=== PATIENT | female | born 2000 | race Caucasian/White ===

== ENCOUNTER 2021-04-01 08:48 | Inpatient (IN) ==
[2021-04-01] MEDS ORDERED: LACTATED RINGER'S 1,000 ML IV PRN (10:37)
[2021-04-01] MEDS ORDERED: miSOPROStoL 50 MCG TAB PO ONE ×2 (10:37→16:37)
[2021-04-01] MEDS ORDERED: OXYTOCIN 30 UNITS/500 ML BAG IV PRN (10:37)
[2021-04-01 11:26] LABS: Hematocrit (blood only) 34.9 % (37-47); Hemoglobin 11.4 g/dL (12.0-16.0); Mean Corpuscular Hemoglobin 29.8 pg (25-34); Mean Corpuscular Hgb Conc 32.7 g/dL (32-36); Mean Corpuscular Volume 91.4 fL (80-100); Mean Platelet Volume 10.1 fL (7.4-10.4); Platelet Count 211 K/uL (130-400); RDW Coefficient of Variation 16.3 % (11.5-14.5); RDW Standard Deviation 54.5 fL (36.4-46.3); Red Blood Count 3.82 M/uL (4.2-5.4); White Blood Count 14.52 K/uL (4.8-10.8)
[2021-04-01 13:37] LABS: Amphetamines+Metham, Urine Neg (Neg); Barbiturates, Urine Neg (Neg); Benzodiazepine, Urine Neg (Neg); Cocaine, Urine Neg (Neg); MDMA (Ecstacy), Urine Neg (Neg); Methadone, Urine Neg (Neg); Opiate, Urine Neg (Neg); Phencyclidine, Urine Neg (Neg)
[2021-04-01] MEDS: CALCIUM CARBONATE 500 MG CHEWABLE TAB PO PRN (18:03)
[2021-04-01] MEDS: ONDANSETRON INJ 2 MG/ML 2 ML VIAL IV PRN (20:27)
[2021-04-01] MEDS ORDERED: DINOPROSTONE 10 MG INSERT PV ONE (22:19)
--- NOTE | 2021-04-02 00:07 | Labor Progress Brief Note ---
Date of Service April 02, 2021 Assessment & Plan (1) COVID-19 affecting in third trimester: Plan: Induction for post dates + COVID FHR CAT1 CTx Minimal VE ft/50/-3 Cervidil placed Admission and Anticipated Discharge Date Admission Date: April 01, 2021 Results & Data ([facility]) Vital Signs (Past 12 Hours) Vital Signs Temp Pulse Resp BP 04/01/21 22:25 55 L 116/56 L 04/01/21 19:09 36.8 C 74 18 128/56 L 04/01/21 16:07 75 112/58 L 04/01/21 16:06 36.9 C 20 04/01/21 12:25 36.8 C 68 20 110/56 L
--- NOTE | 2021-04-02 12:10 | Labor Progress Brief Note ---
Date of Service April 02, 2021 Assessment & Plan Admission and Anticipated Discharge Date Admission Date: April 01, 2021 Physical Exam Genitourinary: no vaginal lesions, no adnexal mass normal external appearance Manual OB Exam: + cervical dilation (closed), + cervical effacement (25%) and + station high OB Exam Monitor Tracing: + external FHT monitor used, + external uterine monitor used, + category I and + normal FHT variability Cervidil removed from vagina Will continue with Cytotec 50 mcg orally every 4 hours for cervical ripening Results & Data ([facility]) Vital Signs (Past 12 Hours) Vital Signs Temp Pulse Resp BP 04/02/21 07:21 68 104/56 L 04/02/21 07:15 36.8 C 18 04/02/21 04:03 36.7 C 68 16 97/52 L
[2021-04-02] MEDS: miSOPROStoL 50 MCG TAB PO SCH ×2 (18:57→20:14)
--- NOTE | 2021-04-03 01:03 | Labor Progress Brief Note ---
Date of Service April 03, 2021 Assessment & Plan Admission and Anticipated Discharge Date Admission Date: April 01, 2021 Physical Exam Genitourinary: Manual OB Exam: + cervical dilation OB Exam Monitor Tracing: + external FHT monitor used, + external uterine monitor used, + category I and + normal FHT variability cervix closed/50/-3/posterior and firm Sharma inserted into cervix by digital exam with 40 ml saline Results & Data ([facility]) Vital Signs (Past 12 Hours) Vital Signs Temp Pulse Resp BP 04/03/21 00:53 51 L 96/56 L 04/02/21 22:37 36.7 C 72 16 116/57 L 04/02/21 19:07 36.7 C 87 18 116/73 04/02/21 16:24 36.8 C 18 04/02/21 16:23 68 108/64 04/02/21 13:26 36.8 C 64 16 108/61
[2021-04-03] MEDS ORDERED: OXYTOCIN 30 UNITS/500 ML BAG IV PRN (08:21)
[2021-04-03] MEDS: LACTATED RINGER'S 1,000 ML IV SCH ×4 (11:12→22:08)
[2021-04-03] MEDS ORDERED: Nursing to Pharmacy Communication SCH (11:15)
--- NOTE | 2021-04-03 12:13 | Labor Progress Brief Note ---
Date of Service April 03, 2021 Assessment & Plan Admission and Anticipated Discharge Date Admission Date: April 01, 2021 Physical Exam Genitourinary: Manual OB Exam: + cervical dilation 1 cm and 2 cm, + cervical effacement 70% and + station -2 OB Exam Monitor Tracing: + external FHT monitor used, + external uterine monitor used, + category I and + normal FHT variability Sharma fell out at 1105 Pitocin ongoing Results & Data ([facility]) Vital Signs (Past 12 Hours) Vital Signs Temp Pulse Resp BP 04/03/21 10:54 81 120/59 L 04/03/21 07:34 73 124/57 L 04/03/21 07:30 36.9 C 20 04/03/21 04:06 36.7 C 71 18 103/49 L 04/03/21 00:58 36.8 C 18 04/03/21 00:53 51 L 96/56 L
[2021-04-03] MEDS: CALCIUM CARBONATE 500 MG CHEWABLE TAB PO PRN ×3 (12:26→23:45)
--- NOTE | 2021-04-03 16:41 | Labor Progress Brief Note ---
Date of Service April 03, 2021 Assessment & Plan Admission and Anticipated Discharge Date Admission Date: April 01, 2021 Physical Exam Genitourinary: Manual OB Exam: + cervical dilation 1 cm and 2 cm, + cervical effacement 80%, + station -2 and + amniotic fluid clear OB Exam Monitor Tracing: + external FHT monitor used, + external uterine monitor used, + category I and + normal FHT variability AROM with Amni-hook clear fluid Results & Data ([facility]) Vital Signs (Past 12 Hours) Vital Signs Temp Pulse Resp BP 04/03/21 16:02 36.8 C 18 04/03/21 16:00 60 101/52 L 04/03/21 15:16 18 04/03/21 14:15 70 126/70 04/03/21 13:23 71 122/64 04/03/21 12:23 37.0 C 59 L 20 106/57 L 04/03/21 10:54 81 120/59 L 04/03/21 07:34 73 124/57 L 04/03/21 07:30 36.9 C 20
--- NOTE | 2021-04-03 16:46 | Anesthesiology Consultation ---
Date of Service April 03, 2021 Assessment & Plan (1) Encounter for pre-operative examination: Chart Review Chart Review: Patient NOT seen in Pre Admission Testing and Acceptable Risk for Labor Epidural Consults Requested none History Height/Weight Height: 5 ft 2 in Weight: 75.75 kg Allergies Allergy/AdvReac Type Severity Reaction Status Date / Time amoxicillin Allergy Intermediate hives Verified 04/01/21 10:45 clavulanic acid Allergy Intermediate hives Verified 04/01/21 10:45 Medications Home Medications Medication Instructions Recorded Confirmed Last Taken [id number] 1 mg 1 tab PO DAILY 02/26/21 04/01/21 Unknown tablet Active Medications Generic Name Dose Route Start Last Admin Trade Name Freq PRN Reason Stop Dose Admin Butorphanol Tartrate 1 mg 04/03/21 16:39 04/03/21 18:59 Butorphanol Tartrate 1 Mg/Ml Vial IV 05/03/21 16:38 1 mg Q2H PRN Administration Pain Calcium Carbonate 1,000 mg 04/01/21 17:44 04/03/21 18:43 Calcium Carbonate 500 Mg Chewable Tab PO 05/01/21 17:43 1,000 mg Q4 PRN Administration Indigestion Oxytocin 30 units in 500 mls @ 19 mls/hr 04/03/21 08:21 04/03/21 18:49 Pitocin IV 04/05/21 08:20 1.14 units/hr .Q24H PRN 19 mls/hr Labor Induction/Augmentation Titration Protocol 1.14 UNITS/HR Lactated Ringer's 1,000 mls @ 125 mls/hr 04/03/21 11:15 04/03/21 20:50 Lr IV 04/09/21 11:14 500 mls/hr .Q8H BECKI Infusion Ondansetron HCl 4 mg 04/01/21 20:20 04/03/21 20:32 Ondansetron Inj 2 Mg/Ml 2 Ml Vial IV 05/01/21 20:19 4 mg Q6H PRN Administration Nausea And Vomiting Past Medical History Medical History ADHD (attention deficit hyperactivity disorder) Bipolar 1 disorder Celiac disease Conduct disorder COVID-19 affecting in third trimester Encounter for pre-operative examination Smoker Exercise / Class Metabolic Activity II 4-5 Yardwork/Stairs/Walk up hill Past Surgical History Surgical History History of placement of ear tubes Past Anesthesia History No Hx of Anesthesia Complications and No Family Hx of Anesthesia Complications History of PONV No Hx of PONV and No Hx of Motion Sickness Social History Smoking Status: Current every day smoker tobacco type: cigarettes Smoking cigarettes per day: 3 Hx Alcohol Use: No Hx Substance Use: Yes substance use type: marijuana and methamphetamine Last Used Substance Other:: pt. states she stopped when she found out she was , Physical Exam Vital Signs Last Vital Signs Temp 36.7 C 04/03/21 20:10 Pulse 66 04/03/21 21:40 Resp 18 04/03/21 20:45 BP 106/51 L 04/03/21 20:10 Pulse Ox 97 04/03/21 21:40 Testing Laboratory Results 04/01/21 11:09
[2021-04-03] MEDS: BUTORPHANOL TARTRATE 1 MG/ML VIAL IV PRN ×2 (16:59→18:59)
[2021-04-03] MEDS: ONDANSETRON INJ 2 MG/ML 2 ML VIAL IV PRN (20:32)
--- NOTE | 2021-04-03 20:35 | Labor Progress Brief Note ---
Date of Service April 03, 2021 Assessment & Plan Admission and Anticipated Discharge Date Admission Date: April 01, 2021 Physical Exam Genitourinary: Manual OB Exam: + cervical dilation 3 cm, + cervical effacement 80% and + station -2 OB Exam Monitor Tracing: + external FHT monitor used, + external uterine monitor used, + category I and + normal FHT variability Results & Data ([facility]) Vital Signs (Past 12 Hours) Vital Signs Temp Pulse Resp BP 04/03/21 20:10 36.7 C 18 106/51 L 04/03/21 19:10 18 105/54 L 04/03/21 18:15 60 108/59 L 04/03/21 18:04 36.6 C 18 04/03/21 17:01 18 110/60 04/03/21 16:02 36.8 C 18 04/03/21 16:00 60 101/52 L 04/03/21 15:16 18 04/03/21 14:15 70 126/70 04/03/21 13:23 71 122/64 04/03/21 12:23 37.0 C 59 L 20 106/57 L 04/03/21 10:54 81 120/59 L
[2021-04-03] MEDS ORDERED: ePHEDrine sulfate 50 MG/ML AMP ONE (21:41)
[2021-04-03] MEDS ORDERED: BUPIVACAINE 0.25% 30 ML VIAL ONE (21:42)
[2021-04-03] MEDS ORDERED: fentaNYL 2MCG/ML ROPIVACAINE 1.25MG/ML 100 ML BAG EPI ONE (21:42)
[2021-04-03] MEDS ORDERED: SODIUM CHLORIDE 0.9% INJ 10 ML VIAL ONE (21:42)
[2021-04-03] MEDS ORDERED: fentaNYL citrate 100 MCG/2 ML VIAL ONE (21:42)
[2021-04-03] MEDS ORDERED: fentaNYL 2MCG/ML ROPIVACAINE 1.25MG/ML 100 ML BAG EPI PRN (21:46)
[2021-04-03] MEDS ORDERED: ONDANSETRON INJ 2 MG/ML 2 ML VIAL IV PRN (21:46)
[2021-04-03] MEDS ORDERED: NALOXONE HCL 1 MG in SODIUM CHLORIDE 0.9% 1000ML 1,000 ML IV PRN (21:46)
[2021-04-03] MEDS ORDERED: diphenhydrAMINE 50 MG/ML VIAL IV PRN (21:46)
[2021-04-03] MEDS ORDERED: ePHEDrine sulfate 50 MG/ML AMP IV PRN (21:46)
[2021-04-03] MEDS ORDERED: NALOXONE HCL 0.4 MG/1 ML VIAL/CARP IV PRN (21:46)
[2021-04-03] MEDS ORDERED: NALBUPHINE HCL INJ 10 MG/ML AMP IV PRN (21:46)
[2021-04-03 23:27] LABS: Marijuana Quant, GCMS Urine 65 ng/mL (<5)
[2021-04-04] MEDS: ONDANSETRON INJ 2 MG/ML 2 ML VIAL IV PRN (04:11)
[2021-04-04] MEDS: LACTATED RINGER'S 1,000 ML IV SCH ×2 (04:27→19:20)
[2021-04-04] MEDS: CALCIUM CARBONATE 500 MG CHEWABLE TAB PO PRN (04:28)
[2021-04-04] MEDS ORDERED: ACETAMINOPHEN 325 MG TAB PO PRN (04:37)
[2021-04-04] MEDS ORDERED: ACETAMINOPHEN 325 MG TAB ONE (04:50)
--- NOTE | 2021-04-04 05:12 | History & Physical Bridge Note ---
Date of Service April 04, 2021 History & Physical Bridge Note I have examined the patient, reviewed the History & Physical and in the interval since the performance of the History & Physical I have noted the following changes of clinical significance: no changes noted
[2021-04-04] MEDS ORDERED: CITRIC ACID/SODIUM CITRATE 15 ML UDC PO ONE (05:15)
[2021-04-04] MEDS ORDERED: CITRIC ACID/SODIUM CITRATE 15 ML UDC ONE (05:15)
--- NOTE | 2021-04-04 05:18 | Labor Progress Brief Note ---
Date of Service April 04, 2021 Assessment & Plan Admission and Anticipated Discharge Date Admission Date: April 01, 2021 Physical Exam Genitourinary: Manual OB Exam: + cervical dilation 5 cm and 6 cm OB Exam Monitor Tracing: + external FHT monitor used and + category II molding and caput present tachycardia not responding to IV fluid bolus and patient is remote from delivery will proceed with for persistent Cat 2 FHT remote from delivery and arrest of progress of labor Discussed with patient and her grandmother Results & Data ([facility]) Vital Signs (Past 12 Hours) Vital Signs Temp Pulse Resp BP Pulse Ox Pulse Ox 04/04/21 05:10 98 H 94 04/04/21 05:05 94 H 94 04/04/21 05:01 98 H 129/79 04/04/21 05:00 104 H 95 04/04/21 04:55 94 H 91 04/04/21 04:50 94 H 90 04/04/21 04:45 88 126/58 L 91 04/04/21 04:43 90 91 04/04/21 04:40 88 91 04/04/21 04:37 88 91 04/04/21 04:35 87 93 04/04/21 04:30 37.3 C 82 18 122/76 95 04/04/21 04:25 89 94 04/04/21 04:20 106 H 95 04/04/21 04:15 103 H 95 04/04/21 04:10 110 H 95 04/04/21 04:05 124 H 96 04/04/21 04:00 143 H 97 04/04/21 03:55 81 97 04/04/21 03:50 80 97 04/04/21 03:45 104 H 114/61 97 04/04/21 03:40 88 94 04/04/21 03:35 88 95 04/04/21 03:30 88 18 114/60 95 04/04/21 03:25 87 95 04/04/21 03:20 84 96 04/04/21 03:15 84 119/60 97 04/04/21 03:10 92 H 95 04/04/21 03:05 80 95 04/04/21 03:00 80 109/55 L 96 04/04/21 02:55 86 94 04/04/21 02:50 86 94 04/04/21 02:46 78 113/60 04/04/21 02:45 78 95 04/04/21 02:40 85 95 04/04/21 02:35 83 96 04/04/21 02:31 75 110/60 04/04/21 02:30 86 18 98 04/04/21 02:25 77 95 04/04/21 02:20 81 93 04/04/21 02:15 77 122/56 L 94 04/04/21 02:10 74 95 04/04/21 02:06 37.2 C 18 04/04/21 02:05 78 97 04/04/21 02:00 79 114/58 L 95 04/04/21 01:55 87 95 04/04/21 01:50 74 94 04/04/21 01:45 75 116/58 L 96 04/04/21 01:40 75 94 04/04/21 01:35 75 95 04/04/21 01:30 71 16 110/53 L 96 04/04/21 01:25 78 94 04/04/21 01:20 71 95 04/04/21 01:16 74 117/55 L 04/04/21 01:15 72 94 04/04/21 01:10 68 95 04/04/21 01:05 88 94 04/04/21 01:00 37.1 C 66 18 120/63 97 04/04/21 00:55 67 97 04/04/21 00:50 63 98 04/04/21 00:45 63 97/50 L 96 04/04/21 00:40 63 98 04/04/21 00:35 62 97 04/04/21 00:30 62 18 107/60 97 04/04/21 00:25 71 92 04/04/21 00:20 66 94 04/04/21 00:15 67 118/64 96 04/04/21 00:10 66 94 04/04/21 00:05 68 94 04/04/21 00:01 63 116/60 04/04/21 00:00 68 93 04/03/21 23:55 63 93 04/03/21 23:50 72 95 04/03/21 23:46 63 94/50 L 04/03/21 23:45 65 93 04/03/21 23:41 64 90 04/03/21 23:40 64 96 04/03/21 23:36 74 91 04/03/21 23:35 72 91 04/03/21 23:30 72 18 113/59 L 92 04/03/21 23:29 72 91 04/03/21 23:25 67 93 04/03/21 23:20 77 95 04/03/21 23:19 80 91 04/03/21 23:15 36.9 C 64 18 94 04/03/21 23:14 64 122/60 04/03/21 23:13 67 91 04/03/21 23:10 65 94 04/03/21 23:05 75 95 04/03/21 23:03 67 102/63 04/03/21 23:01 68 91 04/03/21 23:00 63 100/56 L 92 04/03/21 22:57 60 113/55 L 04/03/21 22:55 64 90 04/03/21 22:54 61 119/59 L 04/03/21 22:53 62 91 04/03/21 22:51 61 116/59 L 04/03/21 22:50 67 92 04/03/21 22:48 62 112/60 91 04/03/21 22:45 60 113/58 L 92 04/03/21 22:42 70 116/55 L 04/03/21 22:40 62 92 04/03/21 22:39 66 113/64 04/03/21 22:36 59 L 113/67 04/03/21 22:35 36.8 C 73 18 94 04/03/21 22:33 57 L 110/68 04/03/21 22:30 57 L 103/59 L 96 04/03/21 22:27 54 L 106/59 L 04/03/21 22:25 60 95 04/03/21 22:24 61 110/63 04/03/21 22:21 60 115/65 04/03/21 22:20 64 96 04/03/21 22:18 58 L 119/64 04/03/21 22:17 64 94 04/03/21 22:15 60 98/57 L 96 04/03/21 22:13 53 L 88/49 L 04/03/21 22:10 60 97 04/03/21 22:09 68 111/58 L 94 04/03/21 22:06 55 L 111/59 L 04/03/21 22:05 63 96 04/03/21 22:03 78 112/60 04/03/21 22:00 68 111/56 L 98 96 04/03/21 21:57 54 L 110/57 L 04/03/21 21:55 64 98 04/03/21 21:54 53 L 111/57 L 04/03/21 21:52 56 L 107/54 L 04/03/21 21:50 55 L 98 04/03/21 21:40 66 97 04/03/21 20:45 18 04/03/21 20:10 36.7 C 18 106/51 L 04/03/21 19:10 18 105/54 L 04/03/21 18:15 60 108/59 L 04/03/21 18:04 36.6 C 18
[2021-04-04] MEDS ORDERED: PHENYLEPHRINE 100MCG/ML 5ML SYR ONE (05:25)
[2021-04-04] MEDS ORDERED: MoRPHine SULFATE PF 1 MG/ML 10 ML AMP/VIAL ONE (05:25)
[2021-04-04] MEDS ORDERED: OXYTOCIN 10 UNITS/ML VIAL ONE (05:25)
[2021-04-04] MEDS ORDERED: ONDANSETRON INJ 2 MG/ML 2 ML VIAL ONE (05:25)
[2021-04-04] MEDS ORDERED: ePHEDrine sulfate 50 MG/ML AMP ONE (05:25)
[2021-04-04] MEDS ORDERED: LIDOCAINE 2%/EPINEPHRINE 1:200,000 20 ML SDV ONE (05:25)
[2021-04-04] MEDS ORDERED: AZITHROMYCIN 500 MG in DEXTROSE 5% 250 ML IV ONE (05:30)
[2021-04-04] MEDS ORDERED: METHYLERGONOVINE MALEATE 0.2 MG/ML AMP ONE (05:30)
[2021-04-04] MEDS ORDERED: CARBOPROST TROMETHAMINE 250 MCG/ML AMPUL ONE (05:30)
[2021-04-04] MEDS ORDERED: ceFAZolin 2000MG 2,000 MG/15 ML SYR IV ONE (05:30)
[2021-04-04] MEDS ORDERED: MIDAZOLAM HCL 1 MG/ML 2ML VIAL ONE (05:43)
[2021-04-04] MEDS ORDERED: KETAMINE 50 MG/5 ML SYRINGE ONE (05:43)
--- NOTE | 2021-04-04 07:28 | Post Operative Brief Note ---
Immediate Post Op Note v1 Date of Surgery April 04, 2021 Pre & Post Diagnosis Operation Date: 04/04/21 06:00 Pre-Op Diagnosis: Cat 2 HR remote from delivery Arrest of progress of labor Failed induction Covid Positive Post-Op Diagnosis: Same Delivery of live female child at 0627 I identified the patient and participated in the time-out.: Yes Procedure Operation Date: 04/04/21 06:00 Actual Procedures p Section in LD - Osman Stafford MD Surgeon Osman Stafford MD Picking Machine Operator Dr Levy Estimated Blood Loss 500 Findings Consistent with Post-Op Diagnosis live female Apgars and weight pending nuchal cord x1 OP presentation Fluids LR Drains Sharma Catheter Anesthesia Type Labor Epidural Complications none Overlapping Procedure I was present for: the critical portions of procedure. I was immediately available: during the entire case. Back up surgeon: used during listed procedure.
[2021-04-04] MEDS ORDERED: MAGNESIUM HYDROXIDE SUSP 30 ML UDC PO PRN (07:37)
[2021-04-04] MEDS ORDERED: SUPERCREAM 0.870% 15 GM JAR EXT PRN (07:37)
[2021-04-04] MEDS ORDERED: SENNA 8.6 MG TAB PO PRN (07:37)
[2021-04-04] MEDS ORDERED: HYDROCORTISONE ACETATE 25 MG SUPP PR PRN (07:37)
[2021-04-04] MEDS ORDERED: LACTATED RINGER'S 1,000 ML IV SCH (07:37)
[2021-04-04] MEDS ORDERED: DIPHTHERIA/TETANUS/PERTUSSIS 0.5 ML SYR/VIAL IM ONE (07:37)
[2021-04-04] MEDS ORDERED: BENZOCAINE 20% AER SPR 82.5 GM CAN EXT PRN (07:37)
[2021-04-04] MEDS ORDERED: NALOXONE HCL 0.4 MG/1 ML VIAL/CARP IV PRN (07:41)
[2021-04-04] MEDS ORDERED: diphenhydrAMINE 50 MG/ML VIAL IV PRN (07:41)
[2021-04-04] MEDS ORDERED: MoRPHine SULFATE PF 1 MG/ML 10 ML AMP/VIAL EPI ONE (07:41)
[2021-04-04] MEDS ORDERED: NALOXONE HCL 0.08 MG in SYRINGE 1.8 ML IV PRN (07:41)
[2021-04-04] MEDS ORDERED: ePHEDrine sulfate 50 MG/ML AMP IV PRN (07:41)
[2021-04-04] MEDS ORDERED: LACTATED RINGER'S 500 ML IV PRN (07:41)
[2021-04-04] MEDS ORDERED: MoRPHine SULFATE 2 MG/ML CARP IV PRN (07:41)
[2021-04-04] MEDS ORDERED: NALBUPHINE HCL INJ 10 MG/ML AMP IV PRN (07:41)
[2021-04-04] MEDS ORDERED: ONDANSETRON INJ 2 MG/ML 2 ML VIAL IV PRN (07:41)
[2021-04-04] MEDS ORDERED: NALOXONE HCL 1 MG in SODIUM CHLORIDE 0.9% 1000ML 1,000 ML IV PRN (07:41)
--- NOTE | 2021-04-04 07:42 | Anesthesia Procedure Note ---
Date of Service April 04, 2021 Anesthesia Post Epidural Note Vital Signs Vital Signs: Temp Pulse Resp BP Pulse Ox 37.3 C 101 H 18 123/58 L 94 04/04/21 04:30 04/04/21 07:40 04/04/21 05:30 04/04/21 07:40 04/04/21 07:40 Pain Intensity Bilateral Lower Abdomen: Pain Intensity: 5 Notes Mental Status: alert / awake / arousable Patient Amnestic to Procedure: No Nausea / Vomiting: adequately controlled Pain: adequately controlled Airway Patency, RR, SpO2: stable & adequate BP & HR: stable & adequate Hydration State: stable & adequate Neuraxial Anesthesia: was administered and sensory block is resolving Anesthetic Complications: no major complications apparent and Pt Satisfied with anesthetic care Epidural: Removed without complications and With tip intact
--- NOTE | 2021-04-04 07:43 | Anesthesiology Progress Note ---
Date of Service April 04, 2021 Anesthesia Post Procedure Vital Signs Vital Signs: Temp Pulse Resp BP Pulse Ox Pulse Ox 04/04/21 07:40 101 H 123/58 L 94 04/04/21 07:35 102 H 91 04/04/21 07:30 99 H 93 04/04/21 07:26 96 H 117/61 94 04/04/21 07:25 96 H 96 04/04/21 05:50 100 H 93 04/04/21 05:45 96 H 100/55 L 93 04/04/21 05:40 100 H 94 04/04/21 05:35 100 H 94 04/04/21 05:30 96 H 18 125/57 L 91 04/04/21 05:25 105 H 94 04/04/21 05:20 99 H 95 04/04/21 05:15 103 H 118/59 L 94 04/04/21 05:13 114 H 89 L 04/04/21 05:10 98 H 94 04/04/21 05:05 94 H 94 04/04/21 05:01 98 H 129/79 04/04/21 05:00 104 H 20 95 04/04/21 04:55 94 H 91 04/04/21 04:50 94 H 90 04/04/21 04:45 88 126/58 L 91 04/04/21 04:43 90 91 04/04/21 04:40 88 91 04/04/21 04:37 88 91 04/04/21 04:35 87 93 04/04/21 04:30 37.3 C 82 18 122/76 95 04/04/21 04:25 89 94 04/04/21 04:20 106 H 95 04/04/21 04:15 103 H 95 04/04/21 04:10 110 H 95 04/04/21 04:05 124 H 96 04/04/21 04:00 143 H 18 97 04/04/21 03:55 81 97 04/04/21 03:50 80 97 04/04/21 03:45 104 H 114/61 97 04/04/21 03:40 88 94 04/04/21 03:35 88 95 04/04/21 03:30 88 18 114/60 95 04/04/21 03:25 87 95 04/04/21 03:20 84 96 04/04/21 03:15 84 119/60 97 04/04/21 03:10 92 H 95 04/04/21 03:05 80 95 04/04/21 03:00 80 109/55 L 96 04/04/21 02:55 86 94 04/04/21 02:50 86 94 04/04/21 02:46 78 113/60 04/04/21 02:45 78 95 04/04/21 02:40 85 95 04/04/21 02:35 83 96 04/04/21 02:31 75 110/60 04/04/21 02:30 86 18 98 04/04/21 02:25 77 95 04/04/21 02:20 81 93 04/04/21 02:15 77 122/56 L 94 04/04/21 02:10 74 95 04/04/21 02:06 37.2 C 18 04/04/21 02:05 78 97 04/04/21 02:00 79 114/58 L 95 04/04/21 01:55 87 95 04/04/21 01:50 74 94 04/04/21 01:45 75 116/58 L 96 04/04/21 01:40 75 94 04/04/21 01:35 75 95 04/04/21 01:30 71 16 110/53 L 96 04/04/21 01:25 78 94 04/04/21 01:20 71 95 04/04/21 01:16 74 117/55 L 04/04/21 01:15 72 94 04/04/21 01:10 68 95 04/04/21 01:05 88 94 04/04/21 01:00 37.1 C 66 18 120/63 97 04/04/21 00:55 67 97 04/04/21 00:50 63 98 04/04/21 00:45 63 97/50 L 96 04/04/21 00:40 63 98 04/04/21 00:35 62 97 04/04/21 00:30 62 18 107/60 97 04/04/21 00:25 71 92 04/04/21 00:20 66 94 04/04/21 00:15 67 118/64 96 04/04/21 00:10 66 94 04/04/21 00:05 68 94 04/04/21 00:01 63 116/60 04/04/21 00:00 68 93 04/03/21 23:55 63 93 04/03/21 23:50 72 95 04/03/21 23:46 63 94/50 L 04/03/21 23:45 65 93 04/03/21 23:41 64 90 04/03/21 23:40 64 96 04/03/21 23:36 74 91 04/03/21 23:35 72 91 04/03/21 23:30 72 18 113/59 L 92 04/03/21 23:29 72 91 04/03/21 23:25 67 93 04/03/21 23:20 77 95 04/03/21 23:19 80 91 04/03/21 23:15 36.9 C 64 18 94 04/03/21 23:14 64 122/60 04/03/21 23:13 67 91 04/03/21 23:10 65 94 04/03/21 23:05 75 95 04/03/21 23:03 67 102/63 04/03/21 23:01 68 91 04/03/21 23:00 63 100/56 L 92 04/03/21 22:57 60 113/55 L 04/03/21 22:55 64 90 04/03/21 22:54 61 119/59 L 04/03/21 22:53 62 91 04/03/21 22:51 61 116/59 L 04/03/21 22:50 67 92 04/03/21 22:48 62 112/60 91 04/03/21 22:45 60 113/58 L 92 04/03/21 22:42 70 116/55 L 04/03/21 22:40 62 92 04/03/21 22:39 66 113/64 04/03/21 22:36 59 L 113/67 04/03/21 22:35 36.8 C 73 18 94 04/03/21 22:33 57 L 110/68 04/03/21 22:30 57 L 103/59 L 96 04/03/21 22:27 54 L 106/59 L 04/03/21 22:25 60 95 04/03/21 22:24 61 110/63 04/03/21 22:21 60 115/65 04/03/21 22:20 64 96 04/03/21 22:18 58 L 119/64 04/03/21 22:17 64 94 04/03/21 22:15 60 98/57 L 96 04/03/21 22:13 53 L 88/49 L 04/03/21 22:10 60 97 04/03/21 22:09 68 111/58 L 94 04/03/21 22:06 55 L 111/59 L 04/03/21 22:05 63 96 04/03/21 22:03 78 112/60 04/03/21 22:00 68 111/56 L 98 96 04/03/21 21:57 54 L 110/57 L 04/03/21 21:55 64 98 04/03/21 21:54 53 L 111/57 L 04/03/21 21:52 56 L 107/54 L 04/03/21 21:50 55 L 98 04/03/21 21:40 66 97 04/03/21 20:45 18 04/03/21 20:10 36.7 C 18 106/51 L 04/03/21 19:10 18 105/54 L 04/03/21 18:15 60 108/59 L 04/03/21 18:04 36.6 C 18 04/03/21 17:01 18 110/60 04/03/21 16:02 36.8 C 18 04/03/21 16:00 60 101/52 L 04/03/21 15:16 18 04/03/21 14:15 70 126/70 04/03/21 13:23 71 122/64 04/03/21 12:23 37.0 C 59 L 20 106/57 L 04/03/21 10:54 81 120/59 L Pain Intensity Bilateral Lower Abdomen: Pain Intensity: 5 Transfer of Care Handoff Completed per policy Notes Mental Status: alert / awake / arousable and participated in evaluation Patient Amnestic to Procedure: Yes Nausea / Vomiting: adequately controlled Pain: adequately controlled Airway Patency, RR, SpO2: stable & adequate BP & HR: stable & adequate Hydration State: stable & adequate Anesthetic Complications: no major complications apparent and Pt Satisfied with anesthetic care
[2021-04-04] MEDS ORDERED: NO NARCOTICS OR SEDATIVES SCH (07:45)
[2021-04-04] MEDS ORDERED: DC INTRASPINAL MORPHINE SCH (07:45)
[2021-04-04] MEDS ORDERED: SODIUM CHLORIDE 0.9% 1000ML 1,000 ML IV SCH (07:45)
--- NOTE | 2021-04-04 08:06 | Operative Report (OR) ---
PREOPERATIVE DIAGNOSES: Primary section for persistent category 2 heart rate, arrest of progress of labor, and COVID positive patient. POSTOPERATIVE DIAGNOSES: Primary section for persistent category 2 heart rate, arrest of progress of labor, and COVID positive patient plus nuchal cord x1 plus occiput posterior presenta tion. SURGEON: Osman Stafford MD TRANSPORT COMPANY MANAGER: Morgan Levy MD ANESTHESIA: Epidural. COMPLICATIONS: None. FINDINGS: Live female, Apgars 8 and 9, nuchal cord x1, OP, weight pending. CLINICAL HISTORY: The patient is a 20-year-old female, para 0-0-0-0, at 40 weeks and 3 days who was admitted initially for postdates at 40 weeks and a day. The patient had several days of ri pening of the cervix with Cervidil, Cytotec, and Sharma. She progressed to 6 cm without any further p rogress and she had a persistent tachycardia with some variables that were present. She was af ebrile. Fluid was clear. The patient was counseled as to the risks of continuing the and since she was remote from term and had made little progress, decision was made to go ahead with a antwan arean section. Consents were signed, the patient was counseled along with the grandmother of the ris ks and benefits of the procedure, and the alternatives to continue to labor. The patient was brought down to the COVID room where proper precautions were done. Timeout was called prior to start of pro cedure. Antibiotics consisting of Ancef and Zithromax were given preop. DESCRIPTION OF PROCEDURE: Under satisfactory epidural anesthesia, the patient was prepped and draped in the usual sterile fashion. Low Pfannenstiel incision was made entering into the abdominal cavity in successive layers without difficulty. Upon entering into the abdominal cavity, a bladder blade w as placed. Bladder flap was made with Metzenbaum scissors and then the bladder blade was replaced. A low segment transverse incision over the lower uterine segment was made. The incision was nicked. Amniotic fluid was noted to be clear. The incision was widened in the AP diameter. The was then delivered from the vertex in the OP position. There was a nuchal cord x1 reduced at time of del lavern. Delayed cord clamping was accomplished for 1 minute. After the cord was clamped and cut, baby was handed to the pool player. Apgars were 8 and 9. weight was pending. Cord blood was obt ained. Placenta was delivered manually and intact. The uterus was then exteriorized. Ring forceps were then placed on both angles in the inferior margin. Another lap was used to clean out the interi or of the uterus of all clots and debris. Uterus was then closed in double layer closure with 0 Vicr yl suture in a continuous interlocking fashion followed by a second imbricating suture. Tubes, ovari es bilaterally were found to be within normal limits. The uterus was then placed back into the sandra l anatomical position. The contents of the pelvic and abdominal cavity were then irrigated to clear. The initial sponge, needle, and instrument count were found to be correct. The fascia was then andres pproximated using 0 Vicryl suture in a continuous fashion on both sides. Subcuticular space was irri gated and then closed with 3-0 plain suture and the skin was then reapproximated with 4-0 Monocryl herbert ture. Steri-Strips and Telfa dressing and ABD dressing were applied. Clear urine was noted from the Sharma. Estimated blood loss was 500 mL. The final sponge, needle and instrument counts were found to be correct. The patient will be placed in recovery in stable condition. Job ID: [id number]
[2021-04-04] MEDS: KETOROLAC 30 MG/ML VIAL IV PRN ×3 (08:20→21:08)
[2021-04-04] MEDS ORDERED: NON-FORMULARY MEDICATION (Prenatal Multivit-Min-Fe-Fa 1 mg Tablet) PO SCH (09:00)
[2021-04-04] MEDS: PRENATAL VITAMIN 1 TAB PO SCH (12:06)
[2021-04-04] MEDS: SIMETHICONE 80 MG CHEW PO SCH ×4 (12:06→21:50)
[2021-04-04] MEDS: FERROUS SULFATE 325 MG TAB PO SCH (12:06)
[2021-04-04] MEDS: DOCUSATE SODIUM 100 MG CAP PO SCH ×2 (12:06→21:09)
[2021-04-05] MEDS ORDERED: ONDANSETRON INJ 2 MG/ML 2 ML VIAL IV PRN (01:42)
[2021-04-05] MEDS ORDERED: PROMETHAZINE HCL 25 MG in SODIUM CHLORIDE 0.9% 50 ML IV PRN (01:42)
[2021-04-05] MEDS ORDERED: diphenhydrAMINE 50 MG/ML VIAL IV PRN (01:42)
[2021-04-05] MEDS ORDERED: diphenhydrAMINE Capsule 25 MG CAP PO PRN (01:42)
[2021-04-05] MEDS ORDERED: MEPERIDINE HCL 50 MG/ML CARP IV PRN (01:42)
[2021-04-05] MEDS: IBUPROFEN 600 MG TAB PO PRN ×6 (01:51→21:48)
[2021-04-05] MEDS: oxyCODONE/ACETAMINOPHEN 5mg/325mg TAB PO PRN ×6 (01:52→21:48)
[2021-04-05 06:50] LABS: Basophils # (auto) 0.02 K/uL (0-0.2); Basophils % (auto) 0.1 %; Eosinophils # (auto) 0.11 K/uL (0-0.5); Eosinophils % (auto) 0.7 %; Hematocrit (blood only) 27.5 % (37-47); Hemoglobin 8.9 g/dL (12.0-16.0); Immature Granulocytes # (auto) 0.03 K/uL (0.00-0.02); Immature Granulocytes % (auto) 0.2 %; Lymphocytes # (auto) 1.38 K/uL (1.2-3.4); Lymphocytes % (auto) 9.1 %; Mean Corpuscular Hemoglobin 30.2 pg (25-34); Mean Corpuscular Hgb Conc 32.4 g/dL (32-36); Mean Corpuscular Volume 93.2 fL (80-100); Mean Platelet Volume 9.8 fL (7.4-10.4); Monocytes # (auto) 1.22 K/uL (0.11-0.59); Monocytes % (auto) 8.1 %; Neutrophils # (auto) 12.36 K/uL (1.4-6.5); Neutrophils % (auto) 81.8 %; Platelet Count 170 K/uL (130-400); RDW Coefficient of Variation 16.7 % (11.5-14.5); RDW Standard Deviation 57.5 fL (36.4-46.3); Red Blood Count 2.95 M/uL (4.2-5.4); White Blood Count 15.12 K/uL (4.8-10.8)
[2021-04-05] MEDS: SIMETHICONE 80 MG CHEW PO SCH ×4 (08:47→20:09)
[2021-04-05] MEDS: DOCUSATE SODIUM 100 MG CAP PO SCH ×2 (08:47→20:08)
[2021-04-05] MEDS: PRENATAL VITAMIN 1 TAB PO SCH (08:47)
[2021-04-05] MEDS: FERROUS SULFATE 325 MG TAB PO SCH (08:47)
--- NOTE | 2021-04-05 11:14 | Obstetrical Progress Note ---
Date of Service April 05, 2021 Assessment & Plan (1) Encounter for pre-operative examination: C/sec day #1 pt doing well + COVID anticipate disch tomorrow Results & Data ([facility]) Vital Signs (Past 12 Hours) Vital Signs Temp Pulse Resp BP BP Pulse Ox 04/05/21 08:15 36.5 C 64 16 102/72 04/05/21 04:30 36.4 C L 88 20 100/52 L 97 04/05/21 01:30 36.7 C 64 20 94/62 L 96 04/05/21 01:00 18 92 04/05/21 00:00 18 94
[2021-04-05] MEDS ORDERED: bisacodyL 5 MG TABEC PO SCH (20:00)
[2021-04-06] MEDS: oxyCODONE/ACETAMINOPHEN 5mg/325mg TAB PO PRN ×2 (06:49→10:34)
[2021-04-06] MEDS: IBUPROFEN 600 MG TAB PO PRN ×2 (06:50→10:34)
[2021-04-06 06:55] LABS: Hematocrit (blood only) 28.9 % (37-47); Hemoglobin 9.3 g/dL (12.0-16.0)
[2021-04-06] MEDS ORDERED: bisacodyL 10 MG SUPP PR PRN (07:24)
[2021-04-06] MEDS: DOCUSATE SODIUM 100 MG CAP PO SCH (08:46)
[2021-04-06] MEDS: FERROUS SULFATE 325 MG TAB PO SCH (08:46)
[2021-04-06] MEDS: PRENATAL VITAMIN 1 TAB PO SCH (08:46)
[2021-04-06] MEDS ORDERED: MEASLES, MUMPS & RUBELLA VIRUS VIAL SQ ONE (08:47)
[2021-04-06] MEDS: SIMETHICONE 80 MG CHEW PO SCH (08:47)
--- NOTE | 2021-04-06 10:56 | Obstetrical Progress Note ---
Date of Service April 06, 2021 Assessment & Plan (1) delivery delivered: POD #2 +ve COVID pt doing well D/c home with instructions Subjective Ambulation: ambulating normally Voiding: no voiding problems Passing Gas:: Yes Diet Tolerance:: clear liquids Lochia:: Small Feeding Type:: breast feeding Review of Systems All systems reviewed & are unremarkable except as noted in HPI & below Physical Exam Constitutional WD/WN, vitals as above well developed and well nourished Eyes PERRL, conjunctivae normal, anicteric sclerae ENMT external ear and nose normal, oropharynx normal Neck trachea midline, no thyromegaly Respiratory normal respiratory effort, lungs clear to auscultation Cardiovascular RRR, no murmur, no edema Chest (Breasts) normal inspection/palpation of breasts Gastrointestinal (Abdomen) normal bowel sounds, soft, nontender, no hepatosplenomegaly Musculoskeletal no cyanosis or clubbing, extremities motor strength 5/5 Skin no rashes, warm and dry + incision (Clean,dry and intact) Neurologic patellar DTR's 2+ bilat, sensation intact Psychiatric A+Ox3, euthymic affect Genitourinary normal external appearance Lymphatic no cervical or axillary lymphadenopathy Results & Data ([facility]) Vital Signs (Past 12 Hours) Vital Signs Temp Pulse Resp BP BP Pulse Ox 04/06/21 07:52 36.8 C 63 16 111/67 04/05/21 23:05 36.9 C 68 18 95/61 L 98
--- NOTE | 2021-04-14 11:43 | Discharge Summary (DS) ---
DATE OF ADMISSION: 04/01/2021 DATE OF DISCHARGE: 04/06/2021 REASON FOR ADMISSION AND HOSPITAL COURSE: The patient is a 20-year-old female, para 0-0-0-0, at 40 w eeks and 3 days, admitted initially for postdates . The patient had several days of ripenin g of the cervix and Sharma, progressed to 6 cm without any further progress. She had persistent tachycardia with some variables present. The patient was also COVID positive, was in the COVID labo r room. Decision was made to perform a primary section due to nonreassuring heart ton es, category 2 strip and being remote from delivery. Primary section was done without diffic ulty delivering a live baby, Apgars were 8 and 9. The baby had nuchal cord x1. She was subsequently recovered in the COVID unit and she was discharged home in stable condition on 04/06, on postop day #2, in good condition. Home going instructions were given. CONDITION ON DISCHARGE: Stable. MEDICATIONS: Include Percocet and Motrin. Followup will be in a week for incision check. Job ID: [id number]
== END 2021-04-06 11:47 | disposition home or self-care (01) | DRG 786 ==
LOC: 4S1 08:48 → 4W 10:55 → 3E 04-04 16:27
DX: O98.52 Other viral diseases complicating childbirth; O64.0XX0 Obstructed labor due to incomplete rotation of fetal head, not applicable or unspecified; Z3A.40 40 weeks gestation of pregnancy; U07.1 COVID-19; Z37.0 Single live birth; O76 Abnormality in fetal heart rate and rhythm complicating labor and delivery; O69.81X0 Labor and delivery complicated by cord around neck, without compression, not applicable or unspecified; O32.4XX0 Maternal care for high head at term, not applicable or unspecified; O48.0 Post-term pregnancy